=== PATIENT | male | born 1985 | race Caucasian/White ===

== ENCOUNTER 2018-12-15 23:27 | Emergency (ER) | payer SELFPAY ==
[2018-12-15] MEDS ORDERED: HALOPERIDOL LACT 5 MG/ML INJ ONE (23:37)
[2018-12-15] MEDS ORDERED: HALOPERIDOL LACT 5 MG/ML INJ IM ONE (23:42)
--- NOTE | 2018-12-16 03:21 | EDPHY ---
H & P Stated Complaint: ETOH, combative - Personal History Current Tetanus/Diphtheria Vaccine: Yes Current Tetanus Diphtheria and Acellular Pertussis (TDAP): Yes - Medical/Surgical History Hx Asthma: No Hx Chronic Respiratory Disease: No Hx Diabetes: No Hx Cardiac Disease: No Hx Renal Disease: No Hx Cirrhosis: No Hx Alcoholism: No Hx HIV/AIDS: No Hx Splenectomy or Spleen Trauma: No - Social History Smoking Status: Never smoked Time Seen by Provider: 12/15/18 23:37 HPI/ROS: Chief complaint: Altered mental status History of present illness: This is a 33-year-old male brought to the emergency department by EMS, accompanied by police for altered mental status. Apparently patient was at a bar/restaurant this evening. He became extremely belligerent. He was brought here for further evaluation and care. Patient is alert, will occasionally talk but will not respond to my questions. Review of systems: Unable to obtain as patient will not speak with me. (Marcus Koo) - Physical Exam Exam: General Appearance: Alert, nontoxic. Eyes: Pupils equal and round no pallor or injection. ENT, Mouth: Mucous membranes moist. Respiratory: There are no retractions, lungs are clear to auscultation. Cardiovascular: Regular rate and rhythm. Gastrointestinal: Abdomen is soft and non tender, no masses, bowel sounds normal. Neurological: Alert. Skin: Warm and dry, no rashes. Musculoskeletal: Neck is supple non tender. Extremities are symmetrical, full range of motion. Psychiatric: Patient is agitated. Will not speak with me. (Marcus Koo) Constitutional: Initial Vital Signs Temperature (C) 36.6 C 12/15/18 23:37 Heart Rate 101 H 12/15/18 23:37 Respiratory Rate 18 12/15/18 23:37 Blood Pressure 150/90 H 12/15/18 23:37 O2 Sat (%) 97 12/15/18 23:37 O2 Delivery Mode Room Air Allergies/Adverse Reactions: No Known Allergies Allergy (Unverified 12/15/18 23:41) Medical Decision Making ED Course/Re-evaluation: Patient seen under the supervision of my secondary supervising physician Dr. Franco Patel. Patient is brought to the emergency department after becoming extremely belligerent at a bar/restaurant this evening. On my evaluation he is alert but will not speak with me. He has had to be sedated. EMS did give him 5 mg of Haldol and 25 mg of Benadryl. He was given an additional 5 mg of Haldol in the emergency department. He will be allowed to rest. Upon waking up he will need to be re-evaluated. Care of patient is turned over to my attending physician Dr. Franco Patel end of shift. (Marcus Koo) 0530: Patient is now sober. Patient states he drank too much alcohol. Denies any other comma ingestions or drugs. The patient ambulated well throughout the emergency without any difficulty. He is requesting discharge home. Patient answers questions appropriately denies SI or HI denies want hurt himself or anybody else. He states that he drank too much alcohol last night. He denies any complaints. (Franco Patel) Differential Diagnosis: Included but not limited to alcohol intoxication, polysubstance abuse, underlying psychiatric disorder (Marcus Koo) - Data Points Medications Given: Discontinued Medications Haloperidol Lactate (Haldol Injection) 5 mg IM EDNOW ONE Stop: 12/15/18 23:43 Last Admin: 12/15/18 23:45 Dose: 5 mg Departure - Departure Disposition: Home, Routine, Self-Care Clinical Impression: Alcoholic intoxication Qualifiers: Complication of substance-induced condition: uncomplicated Qualified Code(s): F10.920 - Alcohol use, unspecified with intoxication, uncomplicated Condition: Good Instructions: Alcohol Intoxication (ED) Referrals: Patient,NotPresent [Primary Care Provider] - As per Instructions
[2018-12-16 06:04] VITALS: BP 129/75
== END 2018-12-16 06:03 | disposition home or self-care (01) ==
DX: F10.920 Alcohol use, unspecified with intoxication, uncomplicated (principal)
CPT/HCPCS: J1630